=== PATIENT | female | born 1975 | race Caucasian/White ===

== ENCOUNTER 2017-07-27 17:50 | Emergency (ER) | payer MEDICAID ==
--- NOTE | 2017-07-27 17:51 | EDPHY ---
H & P HPI/ROS: HPI CHIEF COMPLAINT: Abdominal Pain, Abdominal Bloating x 3 weeks HISTORY OF PRESENT ILLNESS: This patient very pleasant 42-year-old female she is otherwise healthy, no significant medical history does not take any daily medications except normal trampoline for neck pain and spironolactone for acne, she presents emergency room with 3 weeks of abdominal pain and abdominal bloating. Patient reports that on she went to [facility] as she thought she was having a "IUD baby " she states she went there to have a test she states that the serum test or "blood test was negative" she reports to me that over the last 3 weeks she has had intermittent nausea and abdominal bloating and abdominal pain she thought that she was 13 weeks but found out on the receive from [facility] that she was not . She has had ongoing abdominal discomfort that she describes as "snakes in her abdomen" she reports there is diffuse poking throughout her abdomen. She now reports to me that the pain is rather severe sharp and burning throughout her entire abdomen. She has not had any vomiting. She denies diarrhea. She states if anything she has been constipated. Denies fever denies urinary symptoms. Past Medical History: Neck pain acne Past Surgical History: She denies any significant surgical history Social History: Denies drugs alcohol tobacco products, Marijuana Occasional. Family History: Noncontributory ROS REVIEW OF SYSTEMS: A comprehensive 10 point review of systems is otherwise negative aside from elements mentioned in the history of present illness. Exam Constitutional appears well nontoxic, triage nursing summary reviewed, vital signs reviewed, awake/alert. Eyes normal conjunctivae and sclera, EOMI, PERRLA. HENT normal inspection, atraumatic, moist mucus membranes, no epistaxis, neck supple/ no meningismus, no raccoon eyes. Respiratory clear to auscultation bilaterally, normal breath sounds, no respiratory distress, no wheezing. Cardiovascular rate normal, regular rhythm, no murmur, no edema, distal pulses normal. Gastrointestinal I cannot elicit any significant tenderness on exam maybe mild tenderness throughout, no peritoneal signs soft, no rebound, no guarding, normal bowel sounds, no distension, no pulsatile mass. Genitourinary no CVA tenderness. Musculoskeletal no midline vertebral tenderness, full range of motion, no calf swelling, no tenderness of extremities, no meningismus, good pulses, neurovascularly intact. Skin pink, warm, & dry, no rash, skin atraumatic. Neurologic awake, alert and oriented x 3, AAOx3, moves all 4 extremities equally, motor intact, sensory intact, CN II-XII intact, normal cerebellar, normal vision, normal speech. Psychiatric normal mood/affect. Heme/Lymph/Immune no lymphadenopathy. Differential diagnosis includes but is not limited to and in no particular order : Bowel obstruction, appendicitis, gallbladder disease, diverticulitis, colitis , enteritis, perforated viscus, gastritis, GERD, esophagitis, urinary tract infection, pyelonephritis, kidney stones Medical Decision Making: Plan for this patient IV establishment blood draw, check basic blood work abdominal labs LFTs and lipase, check UA, check test, proceed with CT scan abdomen pelvis with IV contrast. And re- evaluate. Re-evaluation: CT scan abdomen pelvis with IV contrast called to me by Dr. Jesu Shaffer this shows constipation. Additionally right ovarian cyst. No free fluid no free air. Really no other acute inflammatory process visualized. Patient has no right adnexal pain or low pelvic pain or pain is rather diffuse crampy in nature. Consistent with most likely constipation. Appendix is visualized and is normal. Patient's blood work is unremarkable there is no high white count, electrolytes appropriate, urinalysis does not show infection. Negative test. Recommend MiraLax and Dulcolax. Increase fluid fruits and vegetables. Distally return emergency room if there is worsening abdominal pain fever vomiting.. Source: Patient - Personal History Tetanus Vaccine Date: 2010 - Medical/Surgical History Hx Asthma: No Hx Chronic Respiratory Disease: No Hx Diabetes: No Hx Cardiac Disease: No Hx Renal Disease: No Hx Cirrhosis: No Hx Alcoholism: No Hx HIV/AIDS: No Hx Splenectomy or Spleen Trauma: No Other PMH: denies - Social History Smoking Status: Never smoked Constitutional: Initial Vital Signs Temperature (C) 36.8 C 07/27/17 18:03 Heart Rate 94 07/27/17 18:03 Respiratory Rate 20 07/27/17 18:03 Blood Pressure 133/85 H 07/27/17 18:03 O2 Sat (%) 98 07/27/17 18:03 O2 Delivery Mode Room Air Allergies/Adverse Reactions: No Known Allergies Allergy (Verified 07/27/17 18:02) Home Medications: Medication Instructions Recorded Bisacodyl [Dulcolax] 5 mg PO BID #14 tablet. 07/27/17 Nortriptyline HCl 07/27/17 Polyethylene Glycol 3350 [Miralax 17 gm PO DAILY #4 pkt 07/27/17 17 gm (*)] Spironolactone 07/27/17 Medical Decision Making - Data Points Laboratory Results: Laboratory Results 07/27/17 18:10 07/27/17 18:10 07/27/17 07/27/17 07/27/17 18:15 18:10 18:10 WBC RBC Hgb Hct MCV MCH MCHC RDW Plt Count MPV Neut % (Auto) Lymph % (Auto) [place] % (Auto) Eos % (Auto) Baso % (Auto) Nucleat RBC Rel Count Absolute Neuts (auto) Absolute Lymphs (auto) Absolute Monos (auto) Absolute Eos (auto) Absolute Basos (auto) Absolute Nucleated RBC Immature Gran % Immature Gran # PT INR APTT Sodium 142 mEq/L mEq/L (134-144) Potassium 3.6 mEq/L mEq/L (3.5-5.2) Chloride 100 mEq/L mEq/L (97-110) Carbon Dioxide 26 mEq/l mEq/l (22-31) Anion Gap 16 mEq/L mEq/L (8-16) BUN 18 mg/dL mg/dL (7-23) Creatinine 0.9 mg/dL mg/dL (0.6-1.0) Estimated GFR > 60 Glucose 83 mg/dL mg/dL (70-100) Calcium 9.9 mg/dL mg/dL (8.5-10.4) Total Bilirubin 0.4 mg/dL mg/dL (0.1-1.4) Conjugated Bilirubin 0.1 mg/dL mg/dL (0.0-0.5) Unconjugated Bilirubin 0.3 mg/dL mg/dL (0.0-1.1) AST 24 IU/L IU/L (14-46) ALT 29 IU/L IU/L (9-52) Alkaline Phosphatase 52 IU/L IU/L (38-126) Total Protein 7.7 g/dL g/dL (6.3-8.2) Albumin 4.4 g/dL g/dL (3.5-5.0) Lipase 267 IU/L IU/L (23-300) Beta HCG, Qual NEGATIVE Urine Color YELLOW Urine Appearance CLEAR Urine pH 5.5 (5.0-7.5) Ur Specific [place] 1.020 (1.002-1.030) Urine Protein NEGATIVE (NEGATIVE) Urine Ketones NEGATIVE (NEGATIVE) Urine Blood NEGATIVE (NEGATIVE) Urine Nitrate NEGATIVE (NEGATIVE) Urine Bilirubin NEGATIVE (NEGATIVE) Urine Urobilinogen 0.2 EU EU (0.2-1.0) Ur Leukocyte Esterase NEGATIVE (NEGATIVE) Urine Glucose NEGATIVE (NEGATIVE) 07/27/17 07/27/17 18:10 18:10 WBC 5.34 10^3/uL 10^3/uL (3.80-9.50) RBC 4.57 10^6/uL 10^6/uL (4.18-5.33) Hgb 14.4 g/dL g/dL (12.6-16.3) Hct 40.7 % % (38.0-47.0) MCV 89.1 fL fL (81.5-99.8) MCH 31.5 pg pg (27.9-34.1) MCHC 35.4 g/dL g/dL (32.4-36.7) RDW 12.2 % % (11.5-15.2) Plt Count 262 10^3/uL 10^3/uL (150-400) MPV 9.5 fL fL (8.7-11.7) Neut % (Auto) 48.3 % % (39.3-74.2) Lymph % (Auto) 39.9 % % (15.0-45.0) Norman % (Auto) 9.6 % % (4.5-13.0) Eos % (Auto) 1.1 % % (0.6-7.6) Baso % (Auto) 0.9 % % (0.3-1.7) Nucleat RBC Rel Count 0.0 % % (0.0-0.2) Absolute Neuts (auto) 2.58 10^3/uL 10^3/uL (1.70-6.50) Absolute Lymphs (auto) 2.13 10^3/uL 10^3/uL (1.00-3.00) Absolute Monos (auto) 0.51 10^3/uL 10^3/uL (0.30-0.80) Absolute Eos (auto) 0.06 10^3/uL 10^3/uL (0.03-0.40) Absolute Basos (auto) 0.05 10^3/uL 10^3/uL (0.02-0.10) Absolute Nucleated RBC 0.00 10^3/uL 10^3/uL (0-0.01) Immature Gran % 0.2 % % (0.0-1.1) Immature Gran # 0.01 10^3/uL 10^3/uL (0.00-0.10) PT 13.4 SEC SEC (12.0-15.0) INR 1.03 (0.83-1.16) APTT 27.4 SEC SEC (23.0-38.0) Sodium Potassium Chloride Carbon Dioxide Anion Gap BUN Creatinine Estimated GFR Glucose Calcium Total Bilirubin Conjugated Bilirubin Unconjugated Bilirubin AST ALT Alkaline Phosphatase Total Protein Albumin Lipase Beta HCG, Qual Urine Color Urine Appearance Urine pH Ur Specific [place] Urine Protein Urine Ketones Urine Blood Urine Nitrate Urine Bilirubin Urine Urobilinogen Ur Leukocyte Esterase Urine Glucose Medications Given: Discontinued Medications Hydromorphone HCl (Dilaudid) 0.5 mg IVP EDNOW ONE Stop: 07/27/17 18:01 Last Admin: 07/27/17 18:09 Dose: 0.5 mg Sodium Chloride (Ns) 1,000 mls @ 0 mls/hr IV EDNOW ONE; Wide Open PRN Reason: Protocol Stop: 07/27/17 18:01 Last Admin: 07/27/17 18:08 Dose: 1,000 mls Ondansetron HCl (Zofran) 4 mg IVP EDNOW ONE Stop: 07/27/17 18:01 Last Admin: 07/27/17 18:09 Dose: 4 mg Departure - Departure Disposition: Home, Routine, Self-Care Clinical Impression: Abdominal pain Qualifiers: Abdominal location: generalized Qualified Code(s): R10.84 - Generalized abdominal pain Condition: Good Instructions: Constipation (ED), Acute Abdominal Pain (ED) Additional Instructions: 1. Increase her fluids drink lots of fluids. 2. Return emergency room if develops worsening abdominal pain fever vomiting. 3. MiraLax as prescribed. Referrals: Jannie Serrato MD [Primary Care Provider] - As per Instructions Prescriptions: Bisacodyl [Dulcolax] 5 mg PO BID #14 tablet. Polyethylene Glycol 3350 [Miralax 17 gm (*)] 17 gm PO DAILY #4 pkt
[2017-07-27] MEDS ORDERED: NS 1,000 ML IV ONE (18:00)
[2017-07-27] MEDS ORDERED: HYDROmorphONE/DILAUDID 1 MG/ML INJ IVP ONE ×2 (18:00→19:04)
[2017-07-27] MEDS ORDERED: ONDANSETRON 4 MG/2 ML VIAL IVP ONE ×2 (18:00→19:17)
[2017-07-27 18:16] LABS: PLATELET COUNT 262 10^3/uL (150-400)
[2017-07-27 18:27] LABS: INR 1.03 (0.83-1.16); PROTIME(PATIENT) 13.4 SEC (12.0-15.0)
[2017-07-27] MEDS ORDERED: IOPAMIDOL (ISOVUE-300) 100 ML BTL ONE (18:42)
[2017-07-27 20:06] VITALS: BP 128/78; PULSE 88; RESP 14; TEMP 97.7; O2SAT 90
== END 2017-07-27 20:21 | disposition home or self-care (01) ==
LOC: CED 17:50
DX: R10.84 Generalized abdominal pain (principal); E86.9 Volume depletion, unspecified
CPT/HCPCS: 74177-PO; 80048-PO; 80076-PO; 81003-PO; 83690-PO; 84703-PO; 85025-PO; 85610-PO; 85730-PO; 96374; J1170; J2405; Q9967